=== PATIENT | male | born 1965 | race African-American/Black ===

== ENCOUNTER 2020-10-05 09:10 | Inpatient (IN) | payer OTHER, MEDICAID ==
[~2020-10-05] VITALS: Ht 188 cm; Wt 98.4 kg
[2020-10-05] VITALS (26 sets, daily range): BP systolic 81–155; BP diastolic 53–99
[~2020-10-05 09:10] MED LIST: LACTATED RINGERS 1,000 ML IV SCH
[2020-10-05] MEDS ORDERED: LIDOCAINE HCL/EPINEPHRINE 1%-EPI 1:100,000 20 ML VIAL ONE (09:27)
[2020-10-05] MEDS ORDERED: GENTAMICIN SULF 40MG/ML 2ML VIAL ONE (09:27)
[2020-10-05] MEDS ORDERED: THROMBIN (BOVINE) 5000 UNITS/VIAL TOP ONE (09:28)
[2020-10-05] MEDS ORDERED: FENTANYL CITRATE/PF 50MCG/ML 2ML VIAL ONE (13:43)
[2020-10-05] MEDS ORDERED: NEOSTIGMINE METHYLSULFATE 1MG/ML 10 ML VIAL ONE (13:44)
[2020-10-05] MEDS ORDERED: ROCURONIUM BROMIDE 10MG/ML VIAL 5ML IV ONE (13:44)
[2020-10-05] MEDS ORDERED: PROPOFOL 200MG/20ML VIAL IV ONE (13:44)
[2020-10-05] MEDS ORDERED: GLYCOPYRROLATE 0.2 MG/ML 2ML VIAL ONE ×2 (13:44→16:15)
[2020-10-05] MEDS ORDERED: MIDAZOLAM HCL 2 MG/2 ML VIAL ONE (13:44)
[2020-10-05] MEDS ORDERED: ONDANSETRON HCL 4MG/2ML INJ ONE (14:15)
[2020-10-05] MEDS ORDERED: DEXAMETHASONE 4MG/ML 1ML VIAL ONE (14:15)
[2020-10-05] MEDS ORDERED: HYDROMORPHONE HCL/PF 2MG/ML (OR) ONE (14:15)
[2020-10-05] MEDS ORDERED: MORPHINE SULFATE 4 MG/ML CPJ (NOT FOR IM USE) IV PRN (16:00)
[2020-10-05] MEDS ORDERED: ONDANSETRON INJ IV PRN (17:00)
[2020-10-05] MEDS ORDERED: DIPHENHYDRAMINE INJ IV PRN (17:00)
[2020-10-05] MEDS ORDERED: NALOXONE INJ IV PRN (17:00)
[2020-10-05] MEDS: DEXT 5%/LACTATED RINGERS 1,000 ML IV SCH (17:03)
[2020-10-05] MEDS: NICARDIPINE 100 MG in SODIUM CHLORIDE 0.9% 60 ML IV PRN ×2 (17:04→22:16)
[2020-10-05] MEDS: HYDROMORPHONE PCA 10MG/50ML IV PRN (17:08)
[2020-10-05] MEDS ORDERED: MORPHINE SULFATE 4 MG/ML CPJ (NOT FOR IM USE) IV NR (18:00)
[2020-10-05] MEDS: DEXAMETHASONE 4MG/ML 1ML VIAL IV SCH ×2 (18:06→23:35)
[2020-10-05] MEDS ORDERED: HYDRALAZINE 20MG/ML VIAL IV PRN (20:15)
[2020-10-05] MEDS ORDERED: CEFAZOLIN SODIUM 1000MG/VIAL IV SCH (22:00)
[2020-10-05] MEDS: CEFAZOLIN 1000MG PREMIX 50 ML IV SCH (22:15)
[2020-10-05 23:28] LABS: HEMATOCRIT. 37.4 % (42.0-52.0); HEMOGLOBIN. 12.2 g/dL (14.0-18.0); MEAN CORPUSCULAR HEMOGLOBIN 26.3 pg (28.0-32.0); MEAN CORPUSCULAR VOLUME 80.6 fL (80.0-94.0); MEAN PLATELET VOLUME 7.5 fl (7.4-10.4); PLATELET 200 x1000/uL (130-400); RED BLOOD CELL COUNT 4.65 mill/uL (4.7-6.1); RED CELL DISTRIBUTION WIDTH 15.3 % (11.6-14.6)
[2020-10-05 23:38] LABS: CHLORIDE 106 mEq/L (98-107)
[2020-10-06] VITALS (51 sets, daily range): BP systolic 94–134; BP diastolic 45–76
[2020-10-06] MEDS: DEXT 5%/LACTATED RINGERS 1,000 ML IV SCH ×3 (02:53→16:46)
[2020-10-06 05:28] LABS: PLATELET ESTIMATE NORMAL
[2020-10-06] MEDS: CEFAZOLIN 1000MG PREMIX 50 ML IV SCH ×3 (05:32→22:28)
[2020-10-06] MEDS: DEXAMETHASONE 4MG/ML 1ML VIAL IV SCH ×2 (05:32→11:51)
[2020-10-06] MEDS: HYDROMORPHONE PCA 10MG/50ML IV PRN ×2 (05:48→22:28)
[2020-10-06 18:03] LABS: CHLORIDE 102 mEq/L (98-107)
[2020-10-06] MEDS ORDERED: IPRATROPIUM/ALBUTEROL 0.5-3(2.5)MG/3ML NEB HHN PRN (21:30)
[2020-10-06] MEDS ORDERED: HYDRALAZINE 10 MG in SODIUM CHLORIDE 0.9% 50 ML IV PRN (22:45)
[2020-10-07] VITALS: BP 104/59
[2020-10-07 04:00] VITALS: BP 110/62
[2020-10-07] MEDS: CEFAZOLIN 1000MG PREMIX 50 ML IV SCH ×3 (05:26→21:29)
[2020-10-07 08:00] VITALS: BP 120/62
[2020-10-07] MEDS: DEXT 5%/LACTATED RINGERS 1,000 ML IV SCH ×2 (08:00→17:14)
[2020-10-07 12:00] VITALS: BP 123/78
[2020-10-07 16:00] VITALS: BP 132/79
[2020-10-07 16:17] LABS: BASOPHILS % 0.2 % (0.0-2.0); HEMATOCRIT. 35.2 % (42.0-52.0); HEMOGLOBIN. 11.5 g/dL (14.0-18.0); LYMPHOCYTES % 8.2 % (20.0-50.0); MEAN CORPUSCULAR HEMOGLOBIN 26.2 pg (28.0-32.0); MEAN CORPUSCULAR VOLUME 80.4 fL (80.0-94.0); MEAN PLATELET VOLUME 7.4 fl (7.4-10.4); MONOCYTES % 8.3 % (2.0-8.0); NEUTROPHILS % 83.3 % (40.0-76.0); PLATELET 177 x1000/uL (130-400); RED BLOOD CELL COUNT 4.38 mill/uL (4.7-6.1); RED CELL DISTRIBUTION WIDTH 15.7 % (11.6-14.6)
[2020-10-07 20:00] VITALS: BP 121/77
[2020-10-08] VITALS: BP 125/78
[2020-10-08 04:00] VITALS: BP 117/84
[2020-10-08] MEDS: DEXT 5%/LACTATED RINGERS 1,000 ML IV SCH ×2 (04:24→15:27)
[2020-10-08 08:00] VITALS: BP 118/77
[2020-10-08 12:00] VITALS: BP 125/79
[2020-10-08 16:00] VITALS: BP 122/81
[2020-10-08] MEDS ORDERED: HYDROCODONE/ACETAMINOPHEN 10/325MG TABLET PO PRN (17:00)
[2020-10-08] MEDS ORDERED: MORPHINE SULFATE 2 MG/ML CPJ (NOT FOR IM USE) IV PRN (17:00)
[2020-10-08] MEDS: HYDROCODONE/ACETAMINOPHEN 5/325MG TABLET PO PRN (17:57)
[2020-10-08 20:00] VITALS: BP 126/80
[2020-10-09] VITALS: BP 118/75
[2020-10-09] MEDS: DEXT 5%/LACTATED RINGERS 1,000 ML IV SCH ×2 (00:20→09:26)
[2020-10-09] MEDS: HYDROCODONE/ACETAMINOPHEN 5/325MG TABLET PO PRN ×3 (02:43→15:36)
[2020-10-09 04:00] VITALS: BP 120/76
[2020-10-09 08:00] VITALS: BP 139/88
[2020-10-09 12:00] VITALS: BP 115/77
[2020-10-09 16:00] VITALS: BP 131/85
[2020-10-09 16:48] VITALS: BP 131/85
[2020-10-09] MEDS ORDERED: HYDR-4001 MT (16:54)
== END 2020-10-09 17:50 | disposition home health service (06) | DRG 321 ==
LOC: OR 09:10 → MICUSO 16:28 → 6EST 10-06 15:15
PROVIDERS: ADMIT Neurological Surgery; ATTEND Neurological Surgery
PROC: 0RG2071 Fusion of 2 or more Cervical Vertebral Joints with Autologous Tissue Substitute, Posterior Approach, Posterior Column, Open Approach (ICD-10-PCS; principal; 2020-10-05)
PROC: 01N10ZZ Release Cervical Nerve, Open Approach (ICD-10-PCS; 2020-10-05)
PROC: 4A11X4G Monitoring of Peripheral Nervous Electrical Activity, Intraoperative, External Approach (ICD-10-PCS; 2020-10-05)
DX: M48.02 Spinal stenosis, cervical region (principal); G82.50 Quadriplegia, unspecified; M47.12 Other spondylosis with myelopathy, cervical region; M47.22 Other spondylosis with radiculopathy, cervical region; N28.89 Other specified disorders of kidney and ureter; F12.90 Cannabis use, unspecified, uncomplicated; D72.829 Elevated white blood cell count, unspecified; Z90.5 Acquired absence of kidney; T38.0X5A Adverse effect of glucocorticoids and synthetic analogues, initial encounter; Y92.89 Other specified places as the place of occurrence of the external cause; Z20.822 Contact with and (suspected) exposure to COVID-19; F43.8 Other reactions to severe stress
CPT/HCPCS: 36415; 72040; 72141; 76000; 80048; 85025; 86850; 86900; 87426; 88305; 88311; 95863; 95925; 95926; 95928; 95929; 97116; 97163; 97166; C1713; J0360; J0690; J1100; J1170; J1580; J2250; J2270; J2405; J2704; J2710; J3010; J3490; J7050; J7121